=== PATIENT | female | born 1990 | race Caucasian/White ===

== ENCOUNTER 2017-03-31 16:35 | Inpatient (IN) | payer MEDICARE ==
[~2017-03-31] VITALS: Ht 170.2 cm; Wt 69.9 kg
[2017-03-31 17:29] LABS: HEMOGLOBIN 11.7 gm/dl (12.3-15.3); RED BLOOD COUNT 3.65 M/UL (4.00-5.10); WHITE BLOOD COUNT 9.3 K/UL (4.5-11.0)
[2017-04-02 03:41] LABS: HEMOGLOBIN 9.8 gm/dl (12.3-15.3)
== END 2017-04-03 12:55 | disposition home or self-care (01) | DRG 774 ==
LOC: GENOP 16:35 → OB 16:52
PROVIDERS: ADMIT Obstetrics & Gynecology
PROC: 3E0P7GC Introduction of Other Therapeutic Substance into Female Reproductive, Via Natural or Artificial Opening (ICD-10-PCS; 2017-03-31)
PROC: 0W8NXZZ Division of Female Perineum, External Approach (ICD-10-PCS; principal; 2017-04-01)
PROC: 10E0XZZ Delivery of Products of Conception, External Approach (ICD-10-PCS; 2017-04-01)
PROC: 3E033VJ Introduction of Other Hormone into Peripheral Vein, Percutaneous Approach (ICD-10-PCS; 2017-04-01)
PROC: 10907ZC Drainage of Amniotic Fluid, Therapeutic from Products of Conception, Via Natural or Artificial Opening (ICD-10-PCS; 2017-04-01)
PROC: 3E0R3CZ (ICD-10-PCS; 2017-04-01)
PROC: 3E0234Z Introduction of Serum, Toxoid and Vaccine into Muscle, Percutaneous Approach (ICD-10-PCS; 2017-04-01)
DX: O48.0 Post-term pregnancy (principal); O98.32 Other infections with a predominantly sexual mode of transmission complicating childbirth; O99.324 Drug use complicating childbirth; F11.20 Opioid dependence, uncomplicated; O98.42 Viral hepatitis complicating childbirth; O76 Abnormality in fetal heart rate and rhythm complicating labor and delivery; O26.893 Other specified pregnancy related conditions, third trimester; Z67.41 Type O blood, Rh negative; Z3A.40 40 weeks gestation of pregnancy; Z37.0 Single live birth; O99.334 Smoking (tobacco) complicating childbirth; F17.200 Nicotine dependence, unspecified, uncomplicated; A63.0 Anogenital (venereal) warts; B18.2 Chronic viral hepatitis C; O99.353 Diseases of the nervous system complicating pregnancy, third trimester; R51 Headache; Z23 Encounter for immunization; Z83.3 Family history of diabetes mellitus; Z82.49 Family history of ischemic heart disease and other diseases of the circulatory system; Z80.9 Family history of malignant neoplasm, unspecified
CPT/HCPCS: 36415; 51702; 80307; 81001; 82800; 85014; 85018; 85025; 85461; 86900; 86901; 90715; J2300; J2590; J2795; J3010; J7120

== ENCOUNTER 2017-04-04 17:51 | Emergency (ER) | payer MEDICARE | END 2017-04-04 20:02 | disposition left against medical advice (07) | LOC: ER1 17:51 | DX: Z53.21 Procedure and treatment not carried out due to patient leaving prior to being seen by health care provider (principal) ==